=== PATIENT | female | born 1965 | race Caucasian/White ===

== ENCOUNTER 2017-03-23 20:16 | Emergency (ER) | payer OTHER | END 2017-03-23 23:45 | disposition home or self-care (01) | LOC: D.ER 20:16 | DX: J01.90 Acute sinusitis, unspecified (principal); R51 Headache; L02.224 Furuncle of groin; I10 Essential (primary) hypertension; E11.9 Type 2 diabetes mellitus without complications; E78.00 Pure hypercholesterolemia, unspecified; F32.9 Major depressive disorder, single episode, unspecified; Z85.41 Personal history of malignant neoplasm of cervix uteri ==